=== PATIENT | female | born 1995 | race African-American/Black ===

== ENCOUNTER 2019-05-21 16:15 | Emergency (ER) | payer OTHER ==
[2019-05-21 16:26] VITALS: BP 112/55; PULSE 64; TEMP 97.5; BMI 21.4
[2019-05-21] MEDS ORDERED: KETOROLAC TROMETHAMINE 30 MG/1 ML VIAL IM ONE (16:52)
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
[2019-05-21] MEDS ORDERED: KETOROLAC TROMETHAMINE 30 MG/1 ML VIAL ONE (16:59)
[2019-05-21] MEDS ORDERED: ACETAMINOPHEN 500 MG TABLET (FP) PO ONE (18:19)
[2019-05-21] MEDS ORDERED: ACETAMINOPHEN 325 MG TABLET (FP) ONE (18:24)
== END 2019-05-21 19:58 | disposition home or self-care (01) ==
LOC: JERFT 16:15
PROC: 3E0233Z Introduction of Anti-inflammatory into Muscle, Percutaneous Approach (ICD-10-PCS; principal; 2019-05-21)
DX: S59.801A Other specified injuries of right elbow, initial encounter (principal); M25.561 Pain in right knee; M25.562 Pain in left knee; M25.521 Pain in right elbow; Y04.0XXA Assault by unarmed brawl or fight, initial encounter; Y93.89 Activity, other specified; Y92.038 Other place in apartment as the place of occurrence of the external cause; Y99.8 Other external cause status; Y07.9 Unspecified perpetrator of maltreatment and neglect; M79.7 Fibromyalgia; Z87.09 Personal history of other diseases of the respiratory system
CPT/HCPCS: 73070-TC-RT-FY; 73562-TC-LT-FY; 73562-TC-RT-FY; 96372; 99284-25

== ENCOUNTER 2019-11-18 02:44 | Emergency (ER) | payer OTHER ==
[2019-11-18 02:56] VITALS: BMI 24.0
--- NOTE | 2019-11-18 03:51 | PDOC ---
History of Present Illness - General Chief Complaint: Pain Stated Complaint: PAIN Time Seen by Provider: 11/18/19 03:50 History Source: Patient Exam Limitations: No Limitations - History of Present Illness Initial Comments: 11/18/19 03:52 24yF w PMHx asthma presenting w 2d R groin skin irritation and intermittent nausea. Did not take any meds for symptoms. Has similar irritation after shaving in the past. Denies fever, n/v, vaginal discharge/bleeding, dysuria. Past History - Medical History Allergies/Adverse Reactions: Allergies Allergy/AdvReac Type Severity Reaction Status Date / Time No Known Allergies Allergy Verified 11/18/19 02:51 Home Medications: Ambulatory Orders Bacitracin - [Bacitracin Topical Ointment -] 1 applic TP TID #1 tube 11/18/19 - Reproductive History Is Patient Now?: No - Psycho-Social/Smoking History Smoking History: Never smoked Have you smoked in the past 12 months: No Information on smoking cessation initiated: No - Substance Abuse Hx (Audit-C & DAST Scrn) How often the patient has a drink containing alcohol: Never Score: In Men: 4 or > Positive; In Women: 3 or > Positive: 0 Screen Result (Pos requires Nsg. Audit-10AR): Negative In the last yr the pt used illegal drug/Rx for NonMed reason: No Score: Yes response is considered Positive: 0 Screen Result (Positive result requires Nsg. DAST-10): Negative Review of Systems - Review of Systems Constitutional: No: Chills, Fever HEENTM: No: Eye Pain, Nose Congestion Respiratory: No: Cough, Shortness of Breath Cardiac (ROS): No: Chest Pain, Palpitations ABD/GI: Yes: Nausea. No: Constipated, Diarrhea, Vomiting : No: Burning, Dysuria Musculoskeletal: No: Back Pain, Joint Pain Integumentary: No: Bruising, Flushing Neurological: No: Headache, Seizure Psychiatric: No: Anxiety, Depression Endocrine: No: Intolerance to Cold, Intolerance to Heat Hematologic/Lymphatic: No: Anemia, Blood Clots *Physical Exam - Vital Signs Last Vital Signs Temp Pulse Resp BP Pulse Ox 98.4 F 73 20 108/66 99 11/18/19 02:51 11/18/19 02:51 11/18/19 02:51 11/18/19 02:51 11/18/19 02:51 - Physical Exam General Appearance: Yes: Nourished, Appropriately Dressed, Mild Distress HEENT: positive: EOMI, SHORTY, Normal Voice, Hearing Grossly Normal. negative: Scleral Icterus (R), Scleral Icterus (L) Respiratory/Chest: positive: Lungs Clear, Normal Breath Sounds. negative: Chest Tender, Respiratory Distress Cardiovascular: positive: Regular Rhythm, Regular Rate, S1, S2. negative: Edema, Murmur Female Pelvic Exam: positive: normal external exam, other. negative: vaginal bleeding (mildly erythematous, irritated shaved hair follicles R groin. No intralabial skin lesion/cyst/abscess/wound) Gastrointestinal/Abdominal: positive: Normal Bowel Sounds, Flat, Soft. negative: Tender, Organomegaly Integumentary: positive: Normal Color, Warm Neurologic: positive: Fully Oriented, Alert, Normal Response, Responsive Medical Decision Making - Medical Decision Making 11/18/19 04:30 24yF w PMHx asthma presenting w 2d R groin skin irritation and intermittent nausea Has folliculitis, no sign of abscess/bartholin cyst on genital exam Given zofran, bacitracin DC home w PCP f/u, bacitracin prescription Discharge - Discharge Information Problems reviewed: Yes Clinical Impression/Diagnosis: Folliculitis Condition: Improved Disposition: HOME - Additional Discharge Information Prescriptions: Bacitracin - [Bacitracin Topical Ointment -] 1 applic TP TID #1 tube - Follow up/Referral - Patient Discharge Instructions Patient Printed Discharge Instructions: DI for Folliculitis Additional Instructions: You have folliculitis Apply the prescribed Bacitracin as directed to the affected region Follow up with your primary care doctor - Post Discharge Activity
[2019-11-18] MEDS ORDERED: ONDANSETRON *ODT* 4 MG TABLET SL ONE (04:12)
[2019-11-18] MEDS ORDERED: MUPIROCIN CA 2% TOPICAL CREAM 15 GM TUBE TP ONE (04:26)
[2019-11-18] MEDS ORDERED: BACITRACIN 15 GM TUBE TOPICAL OINTMENT TP ONE (04:28)
[2019-11-18] MEDS ORDERED: BACITRACIN 0.9 GM PACKET ONE (05:03)
[2019-11-18] MEDS ORDERED: ONDANSETRON *ODT* 4 MG TABLET ONE (05:03)
--- NOTE | 2019-11-18 05:07 | PDOC ---
Attending Attestation - Resident Resident Name: Kt Ring - ED Attending Attestation I have performed the following: I have examined & evaluated the patient, The case was reviewed & discussed with the resident, I agree w/resident's findings & plan, Exceptions are as noted - HPI HPI: 11/18/19 07:52 See resident HPI - Physicial Exam PE: 11/18/19 07:52 Agree with documented exam - Medical Decision Making 11/18/19 07:53 Groin skin irritation, nausea Non-cellulitic, consider folliculitis anti-emetic topical mupirocin re-eval dispo per clinical course likely dc Discharge - Discharge Information Problems reviewed: Yes Clinical Impression/Diagnosis: Folliculitis Condition: Improved Disposition: HOME - Additional Discharge Information Prescriptions: Bacitracin - [Bacitracin Topical Ointment -] 1 applic TP TID #1 tube - Follow up/Referral - Patient Discharge Instructions Patient Printed Discharge Instructions: DI for Folliculitis Additional Instructions: You have folliculitis Apply the prescribed Bacitracin as directed to the affected region Follow up with your primary care doctor - Post Discharge Activity
[2019-11-18 06:00] VITALS: BP 101/62; PULSE 68; TEMP 98.2
== END 2019-11-18 06:20 | disposition home or self-care (01) ==
LOC: JER 02:44
DX: L73.9 Follicular disorder, unspecified (principal)
CPT/HCPCS: 99284-25; Q0162